=== PATIENT | female | born 1955 | race Two or more races ===

== ENCOUNTER 2017-07-20 01:02 | Inpatient (IN) | payer BC ==
[~2017-07-20] VITALS: Ht 170.2 cm; Wt 68.0 kg
[2017-07-20] MEDS ORDERED: ASPI81TA31 PO (01:23)
[2017-07-20] MEDS ORDERED: ESOM40CA PO (01:23)
[2017-07-20] MEDS ORDERED: ATOR10TA PO ×2 (01:23→15:58)
[2017-07-20] MEDS ORDERED: FAMO40TA7 PO (01:26)
[2017-07-20] MEDS ORDERED: METOCLOPRAMIDE HCL 10 MG/2 ML VIAL IV ONE (01:30)
[2017-07-20] MEDS ORDERED: diphenhydrAMINE 50 MG/1 ML VIAL IV ONE (01:30)
[2017-07-20] MEDS ORDERED: diphenhydrAMINE 50 MG/1 ML VIAL ONE (01:52)
[2017-07-20] MEDS ORDERED: METOCLOPRAMIDE HCL 10 MG/2 ML VIAL ONE (01:52)
[2017-07-20 02:15] LABS: BASOPHILS % (AUTO) 0.7 % (0.0-2.0); EOSINOPHILS # (AUTO) 0.1 K/uL (0.0-0.7); EOSINOPHILS % (AUTO) 1.1 % (0.0-7.0); HEMATOCRIT 39.7 % (31.2-41.9); HEMOGLOBIN 13.1 g/dL (10.9-14.3); LYMPHOCYTES # (AUTO) 2.5 K/uL (20.0-40.0); MEAN CORPUSCULAR HEMOGLOBIN 29.2 uug (24.7-32.8); MEAN CORPUSCULAR HGB CONC 33 g/dL (32.3-35.6); MEAN CORPUSCULAR VOLUME 88.5 fL (75.5-95.3); MONOCYTES # (AUTO) 0.5 K/uL (2.0-10.0); MONOCYTES % (AUTO) 7.6 % (0.0-11.0); NEUTROPHILS # (AUTO) 3.2 K/uL (1.8-8.9); NEUTROPHILS % (AUTO) 50.6 % (38.5-71.5); PLATELET COUNT (AUTO) 177 K/uL (179-408); RED BLOOD CELL COUNT(AUTO) 4.49 MIL/uL (3.63-4.92); WHITE BLOOD COUNT (AUTO) 6.4 K/uL (3.8-11.8)
[2017-07-20] MEDS ORDERED: MORPHINE SULFATE 2 MG/1 ML DISP.SYRIN IV ONE (02:15)
[2017-07-20 02:28] LABS: BILIRUBIN,DIRECT 0.1 mg/dL (0.0-0.2); BILIRUBIN,TOTAL 0.6 mg/dL (0.2-1.0); CREATININE 0.9 mg/dL (0.6-1.3); POTASSIUM 3.8 mmol/L (3.5-5.1); TOTAL PROTEIN, SERUM 7.6 g/dL (6.4-8.2)
[2017-07-20 02:36] LABS: THYROID STIMULATING HORMONE 3.213 mIU/mL (0.358-3.740)
[2017-07-20] MEDS ORDERED: IV NORMAL SALINE 1000 ML BAG IV ONE (03:30)
[2017-07-20] MEDS ORDERED: IOHEXOL 350 100 ML INFUS..BTL ONE (03:47)
[2017-07-20] MEDS ORDERED: IV NORMAL SALINE 250 ML IV ONE (03:47)
[2017-07-20] MEDS ORDERED: ACETAMINOPHEN 325 MG TABLET PO PRN (05:15)
[2017-07-20] MEDS ORDERED: MORPHINE SULFATE 2 MG/1 ML DISP.SYRIN IV PRN (05:15)
[2017-07-20] MEDS ORDERED: NITROGLYCERIN 0.4 MG/TAB BOTTLE SL PRN (05:15)
[2017-07-20] MEDS ORDERED: DOCUSATE SODIUM 100 MG CAPSULE PO PRN (05:15)
[2017-07-20] MEDS ORDERED: ONDANSETRON 4 MG/2 ML VIAL IV PRN (05:15)
[2017-07-20] MEDS ORDERED: ASPIRIN 325 MG TABLET PO ONE (05:15)
[2017-07-20] MEDS ORDERED: ASPIRIN 325 MG TABLET ONE (05:28)
[2017-07-20] MEDS ORDERED: METOPROLOL TARTRATE 25 MG TABLET PO ONE (05:30)
[2017-07-20] MEDS ORDERED: METOPROLOL TARTRATE 50 MG TABLET PO ONE (05:30)
[2017-07-20 05:45] VITALS: BP 109/61
[2017-07-20] MEDS: METOPROLOL TARTRATE 25 MG TABLET PO SCH ×2 (08:08→17:00)
[2017-07-20] MEDS ORDERED: ASPIRIN 81 MG TAB.CHEW PO SCH (09:00)
[2017-07-20 11:38] VITALS: BP 108/63
[2017-07-20] MEDS ORDERED: ASPI-612 PO (15:58)
[2017-07-20 15:59] VITALS: BP 127/79
[2017-07-20 17:00] VITALS: BP 117/64
[2017-07-20] MEDS ORDERED: FAMOTIDINE 20 MG TABLET PO SCH (21:00)
[2017-07-20] MEDS ORDERED: ATORVASTATIN 10 MG TABLET PO SCH (21:00)
[2017-07-21] MEDS ORDERED: Medication Not On Formulary EA (Famotidine 40 MG) PO SCH (09:00)
[2017-07-21] MEDS ORDERED: ASPIRIN 81 MG TAB.CHEW PO SCH (09:00)
== END 2017-07-20 17:27 | disposition home or self-care (01) | DRG 206 ==
LOC: ER 01:02 → TELE 05:21
PROVIDERS: ADMIT Internal Medicine; ATTEND Internal Medicine
DX: M94.0 Chondrocostal junction syndrome [Tietze] (principal); D69.6 Thrombocytopenia, unspecified; E78.5 Hyperlipidemia, unspecified; G43.909 Migraine, unspecified, not intractable, without status migrainosus; I44.0 Atrioventricular block, first degree; Z87.891 Personal history of nicotine dependence; K21.9 Gastro-esophageal reflux disease without esophagitis; R91.8 Other nonspecific abnormal finding of lung field; Z82.3 Family history of stroke; E78.00 Pure hypercholesterolemia, unspecified; Z86.73 Personal history of transient ischemic attack (TIA), and cerebral infarction without residual deficits
CPT/HCPCS: 36415; 70030-TC; 70450; 71045; 71275; 84443; 85025; 85730; 93005; 93307; A4663; J1200; J2765; J7030; J7050; Q9967